=== PATIENT | female | born 1960 | race Caucasian/White ===

== ENCOUNTER 2016-07-16 11:43 | Emergency (ER) | payer OTHER ==
[~2016-07-16] VITALS: Ht 165.1 cm; Wt 68.9 kg
[~2016-07-16 11:43] MED LIST: CIPRO500 MG PO; CLEOCIN300 MG PO; CYMBALTA20 MG PO; MOTRIN600 MG PO
[2016-07-16 13:35] LABS: HEMATOCRIT 42.4 % (36.0-46.0); MCH 31.2 PG (29.0-34.0); MCHC 35.1 G/DL (30.0-36.0); MCV 88.7 FL (83-99); MEAN PLAT.VOLUME 8.9 uM^3 (9.5-12.4); PLATELET COUNT 206 K/uL (156-360); RBC DIS.WIDTH-CV 11.8 % (11.8-14.6); RBC DIS.WIDTH-SD 37.4 % (39-53); RED BLOOD COUNT 4.78 M/uL (3.80-5.20)
[2016-07-16 13:44] LABS: INTER. NORMALIZED RATIO 0.9; PTT 26.5 (25-32)
[2016-07-16 13:56] LABS: PROTHROMBIN TIME 9.4 (9.2-11.2); TROP-I INTERPRETATION NEGATIVE; TROPONIN-I < 0.01 ng/mL (0.0-0.30)
[2016-07-16 14:18] LABS: CHLORIDE 110 mEq/L (99-109); POTASSIUM 3.9 mEq/L (3.7-5.4); SODIUM 141 mEq/L (136-147)
[2016-07-16 14:19] LABS: GLUCOSE 127 mg/dL (70-99)
[2016-07-16 14:21] LABS: ANION GAP 8 MEQ/L (2-14)
[2016-07-16 14:23] LABS: GFR ESTIMATE (CALCULATED) > 59 mL/min/
[2016-07-16 14:23] LABS: ADD MIUA? NO; BILIRUBIN NEGATIVE; BLOOD NEGATIVE; COLOR STRAW ((YELLOW)); GLUCOSE (STRIP) NEGATIVE; KETONES NEGATIVE; LEUKOCYTES NEGATIVE; NITRITE NEGATIVE; PROTEIN (STRIP) NEGATIVE; SPECIFIC GRAVITY 1.011 (1.000-1.030); UROBILINOGEN 0.2 MG/DL (0.2-1.0)
[2016-07-16 14:23] LABS: AMPHETAMINE NEGATIVE (500 ng/mL); BARBITURATES NEGATIVE (200 ng/mL); BENZODIAZEPINES NEGATIVE (150 ng/mL); COCAINE NEGATIVE (150 ng/mL); INTERNAL CONTROLS VALID? YES; METHADONE NEGATIVE (200 ng/mL); METHAMPHETAMINE NEGATIVE (500 ng/mL); OPIATES (MORPHINE) NEGATIVE (100 ng/mL); OXYCODONE NEGATIVE (100 ng/mL); PHENCYCLIDINE NEGATIVE (25 ng/mL); PROPOXYPHENE NEGATIVE (300 ng/mL); THC CANNABINOIDS NEGATIVE (50 ng/mL); TRICYCLIC ANTIDEPRESSANTS NEGATIVE (300 ng/mL)
[2016-07-16 14:24] LABS: SERUM ETHYL ALCOHOL < 10 mg/dL; UREA NITROGEN (BUN) 11 mg/dL (9-23)
[2016-07-16 15:48] VITALS: BP 126/59
== END 2016-07-16 15:49 | disposition home or self-care (01) ==
LOC: EME 11:43
PROVIDERS: Emergency Medicine
DX: R41.0 Disorientation, unspecified (principal); F17.200 Nicotine dependence, unspecified, uncomplicated; Z88.0 Allergy status to penicillin
CPT/HCPCS: 70450; 71020; 80048; 81003; 84443; 84484; 85027; 85610; 85730; 87077; 87086; 87186; 93005; 99281; 99284; G0480

== ENCOUNTER 2016-12-03 13:15 | Emergency (ER) | payer OTHER ==
[~2016-12-03] VITALS: Ht 165.1 cm; Wt 68.8 kg
[2016-12-03 13:21] VITALS: BP 141/85
== END 2016-12-03 14:05 | disposition left against medical advice (07) ==
LOC: EME 13:15
DX: R39.9 Unspecified symptoms and signs involving the genitourinary system (principal); Z53.21 Procedure and treatment not carried out due to patient leaving prior to being seen by health care provider
CPT/HCPCS: 80048; 81003; 85027

== ENCOUNTER 2017-01-18 16:47 | Emergency (ER) | payer OTHER ==
[~2017-01-18] VITALS: Ht 165.1 cm; Wt 69.9 kg
[2017-01-18 16:56] VITALS: BP 119/91
== END 2017-01-18 17:06 | disposition left against medical advice (07) ==
LOC: EME 16:47
DX: M54.2 Cervicalgia (principal); R51 Headache; Z53.21 Procedure and treatment not carried out due to patient leaving prior to being seen by health care provider